=== PATIENT | male | born 1995 | race Caucasian/White ===

== ENCOUNTER 2017-12-01 18:03 | Emergency (ER) | payer BC, MEDICAID ==
[~2017-12-01] VITALS: Ht 188 cm; Wt 68.8 kg
[2017-12-01 18:11] VITALS: BP 122/81
== END 2017-12-01 18:27 | disposition home or self-care (01) ==
LOC: ED 18:21
DX: K04.7 Periapical abscess without sinus (principal); F17.200 Nicotine dependence, unspecified, uncomplicated
CPT/HCPCS: 99283

== ENCOUNTER 2017-12-29 13:46 | Emergency (ER) | payer MEDICAID ==
[~2017-12-29] VITALS: Ht 188 cm; Wt 68.0 kg
[2017-12-29 14:22] VITALS: BP 122/80
[2017-12-29] MEDS ORDERED: BENZOCAINE 20% SPRAY 0.5ML TP ONE (14:30)
[2017-12-29] MEDS ORDERED: PLEASE ENTER HEIGHT AND WEIGHT MC SCH (14:30)
[2017-12-29] MEDS ORDERED: LIDOCAINE-MPF 1%, 5ML INFIL ONE (14:30)
[2017-12-29] MEDS ORDERED: HYDROcodone/APAP 5/325 TABLET PO ONE (15:00)
[2017-12-29] MEDS ORDERED: HYDROcodone/APAP 5/325 TABLET ONE (15:13)
== END 2017-12-29 15:43 | disposition home or self-care (01) ==
LOC: ED 15:40
DX: K08.89 Other specified disorders of teeth and supporting structures (principal); F17.200 Nicotine dependence, unspecified, uncomplicated
CPT/HCPCS: 99283